=== PATIENT | female | born 1965 | race Two or more races ===

== ENCOUNTER 2017-09-12 10:21 | Emergency (ER) | payer OTHER ==
--- NOTE | 2017-09-12 10:44 | EDPHY ---
H & P Time Seen by Provider: 09/12/17 10:41 HPI/ROS: Chief complaint. Wrist injury HPI. Patient is a 52-year-old female here just after a fall sustaining injury to her left wrist. She was at work. Trip and fall landing on outstretched left arm. No other injuries. No history of previous wrist fracture injury to the wrist. Patient is right handed. Denies focal weakness or paresthesias. Increased pain with range of motion ROS Constitutional. no fever/chills, no weakness Eyes. no problems with vision ENT. no sore throat, no nasal drainage Cardiovascular. no chest pain Respiratory. no shortness of breath, no cough Abdominal. no abdominal pain, no nausea/vomiting, no diarrhea . no problems urinating MS. Left wrist injury Skin. no rash Lymph. no swollen glands Neuro. no headache, no dizziness, no difficulty walking or with speech Past Medical/Surgical History: Orally controlled diabetes Social History: , nonsmoker, no alcohol Smoking Status: Never smoked Physical Exam: General Appearance: Alert well-developed female moderate distress vital signs are stable Eyes: Pupils equal and round no pallor or injection. ENT, Mouth: Mucous membranes are moist. Respiratory: There are no retractions, lungs are clear to auscultation. Cardiovascular: Regular rate and rhythm. Gastrointestinal: Abdomen is soft and nontender, no masses, bowel sounds normal. Neurological: Awake and alert, sensory and motor exams grossly normal. Skin: Warm and dry, no rashes. Musculoskeletal: Neck is supple nontender. Extremities obvious deformity to the left wrist. No elbow or shoulder pain. Distal motor vascular sensitivity is intact. The fracture is closed Psychiatric: Patient is oriented X 3, there is no agitation. Constitutional: Initial Vital Signs Temperature (C) 36.9 C 09/12/17 10:30 Heart Rate 79 09/12/17 10:30 Respiratory Rate 18 09/12/17 10:30 Blood Pressure 164/102 H 09/12/17 10:30 O2 Sat (%) 96 09/12/17 10:30 O2 Delivery Mode Room Air Allergies/Adverse Reactions: No Known Allergies Allergy (Unverified 09/12/17 10:29) Home Medications: Medication Instructions Recorded Hydrocodone/APAP 5/325 [[place] 1 each PO Q4-6PRN PRN #14 tab 09/12/17 5/325 (*)] Metformin HCl 09/12/17 Medical Decision Making - Diagnostics Imaging Results: Imaging Impressions Wrist X-Ray 09/12/17 10:28 Impression: Comminuted intra-articular displaced and angulated fracture of the distal left radial metaphysis. There is also a displaced fracture of the ulnar styloid. Wrist X-Ray 09/12/17 11:20 Impression: Comminuted intra-articular distal left radius fracture with reduced dorsal angulation, but persistent posterior displacement. Displaced ulnar styloid fracture. X-ray interpreted by me shows comminuted intra-articular displaced and angulated fracture of the distal left radius. Also displaced fracture of the ulnar styloid Post reduction x-ray is improved but there is persistent posterior displacement. There is reduced dorsal angulation Procedures: Hematoma block is performed. Finger traps or used for traction. The fracture is reduced by me. Further attempt at reduction. Sugar-tong splint is placed. Post splint application shows good anatomic position and distal motor vascular sensitivity to be intact ED Course/Re-evaluation: Patient remained stable. The patient and I discussed imaging study results, treatment plan, criteria for return and importance of follow-up and further evaluation. She expresses understanding and agreement japanese interpreter is Salud Differential Diagnosis: I considered fracture, dislocation, sprain Departure - Departure Disposition: Home, Routine, Self-Care Clinical Impression: Radius and ulna distal fracture Qualifiers: Encounter type: initial encounter Fracture type: closed Laterality: left Qualified Code(s): S52.502A - Unspecified fracture of the lower end of left radius, initial encounter for closed fracture; S52.602A - Unspecified fracture of lower end of left ulna, initial encounter for closed fracture; S52.602A - Unspecified fracture of lower end of left ulna, initial encounter for closed fracture Condition: Good Instructions: Wrist Fracture in Adults (ED) Additional Instructions: Ice and elevation next 24-48 hours. Splint and sling until see orthopedist. Call orthopedist today for follow-up evaluation. You will likely need surgery on this fracture. Tylenol or hydrocodone as needed for pain. Return for worsening pain. Referrals: [facility] [Other] - As per Instructions Wilian Thornton MD [Medical Doctor] - As per Instructions Prescriptions: Hydrocodone/APAP 5/325 [[place] 5/325 (*)] 1 each PO Q4-6PRN PRN #14 tab PRN Reason: Pain, Moderate
[2017-09-12 13:05] VITALS: BP 143/92
== END 2017-09-12 12:57 | disposition home or self-care (01) ==
LOC: CED 10:21
DX: S52.502A Unspecified fracture of the lower end of left radius, initial encounter for closed fracture (principal); S52.602A Unspecified fracture of lower end of left ulna, initial encounter for closed fracture; E11.9 Type 2 diabetes mellitus without complications; Z79.84 Long term (current) use of oral hypoglycemic drugs; W01.0XXA Fall on same level from slipping, tripping and stumbling without subsequent striking against object, initial encounter; Y92.69 Other specified industrial and construction area as the place of occurrence of the external cause; Y99.0 Civilian activity done for income or pay; Y93.89 Activity, other specified
CPT/HCPCS: 73100-PO; 73110-PO; A4565

== ENCOUNTER 2017-09-17 19:21 | Emergency (ER) | payer OTHER ==
--- NOTE | 2017-09-17 19:38 | EDPHY ---
H & P Time Seen by Provider: 09/17/17 19:31 HPI/ROS: CHIEF COMPLAINT: Wrist fracture HISTORY OF PRESENT ILLNESS: The patient is a 52-year-old female who comes to the emergency department because of a previous wrist fracture. She was seen here on the . She had a Colles fracture of her left wrist. Who was reduced and splinted successfully. She was given a short prescription of pain medications and told to follow up with Dr. Thornton from Orthopedics. She is here with her son and they state that they did follow up with Dr. Thornton's office but their office was asking questions about insurance and records and the patient did not have either. I am not sure if they were told they could not be seen or if they just left. The patient returned here today for more help and also because she is having some discoloration of her fingers and swelling. REVIEW OF SYSTEMS: Constitutional: denies: chills, fever, recent illness, recent injury EENTM: denies: blurred vision, double vision, nose congestion Respiratory: denies: cough, shortness of breath Cardiac: denies: chest pain, irregular heart rate, lightheadedness, palpitations Gastrointestinal/Abdominal: denies: abdominal pain, diarrhea, nausea, vomiting, blood streaked stools Genitourinary: denies: dysuria, frequency, hematuria, pain Musculoskeletal: See HPI Skin: denies: lesions, rash, jaundice, bruising Neurological: denies: headache, numbness, paresthesia, tingling, dizziness, weakness Hematologic/Lymphatic: denies: blood clots, easy bleeding, easy bruising Immunologic/allergic: denies: HIV/AIDS, transplant EXAM: GENERAL: Well-appearing, well-nourished and in no acute distress. HEAD: Atraumatic, normocephalic. EYES: Pupils equal round and reactive to light, extraocular movements intact, sclera anicteric, conjunctiva are normal. ENT: TMs normal, nares patent, oropharynx clear without exudates. Moist mucous membranes. NECK: Normal range of motion, supple without lymphadenopathy or JVD. LUNGS: Breath sounds clear to auscultation bilaterally and equal. No wheezes rales or rhonchi. HEART: Regular rate and rhythm without murmurs, rubs or gallops. ABDOMEN: Soft, nontender, normoactive bowel sounds. No guarding, no rebound. No masses appreciated. BACK: No CVA tenderness, no spinal tenderness, step-offs or deformities EXTREMITIES: Normal swelling and bruising to wrist and fingers. Normal range of motion NEUROLOGICAL: Cranial nerves II through XII grossly intact. Normal speech, normal gait. 5/5 strength, normal movement in all extremities, normal sensation PSYCH: Normal mood, normal affect. SKIN: Warm, dry, normal turgor, no visible rashes or lesions. Source: Patient Exam Limitations: Language barrier (Pattern Illustrator used) - Medical/Surgical History Hx Asthma: No Hx Chronic Respiratory Disease: No Hx Diabetes: Yes Hx Cardiac Disease: No Hx Renal Disease: No Hx Cirrhosis: No Hx Alcoholism: No Hx HIV/AIDS: No Hx Splenectomy or Spleen Trauma: No Other PMH: DM - Family History Significant Family History: No pertinent family hx - Social History Smoking Status: Never smoked Alcohol Use: Sober Drug Use: None Constitutional: Initial Vital Signs Temperature (C) 37 C 09/17/17 20:27 Heart Rate 82 09/17/17 20:27 Respiratory Rate 20 09/17/17 20:27 Blood Pressure 133/95 H 09/17/17 20:27 O2 Sat (%) 94 09/17/17 20:27 O2 Delivery Mode Room Air Allergies/Adverse Reactions: No Known Allergies Allergy (Unverified 09/12/17 10:29) Home Medications: Medication Instructions Recorded Hydrocodone/APAP 5/325 [[place] 1 each PO Q4-6PRN PRN #14 tab 09/12/17 5/325 (*)] Metformin HCl 09/12/17 Medical Decision Making ED Course/Re-evaluation: The patient's wrist is still splinted. She has bruising and swelling as would be expected. No sign of ischemia or infection. We will contact case management and translation services to help facilitate follow-up. Differential Diagnosis: Partial list of the Differential diagnosis considered include but were not limited to; wrist fracture, contusion, swelling and although unlikely based on the history and physical exam, I also considered ischemia, nerve injury, infection. I discussed these differential diagnoses and the plan with the patient as well as the usual and expected course. The patient understands that the diagnosis is provisional and that in medicine we are not always correct and that further workup is often warranted. Usual and customary warnings were given. All of the patient's questions were answered. The patient was instructed to return to the emergency department should the symptoms at all worsen or return, otherwise to followup with the physician as we discussed. Departure - Departure Disposition: Home, Routine, Self-Care Clinical Impression: Wrist fracture, left Qualifiers: Encounter type: subsequent encounter Fracture type: closed Fracture healing: with routine healing Qualified Code(s): S62.102D - Fracture of unspecified carpal bone, left wrist, subsequent encounter for fracture with routine healing Condition: Fair Instructions: Wrist Fracture in Adults (ED) Referrals: [facility] [Other] - As per Instructions Stewart Bartlett MD [Medical Doctor] - 1-2 days without fail
[2017-09-17 20:31] VITALS: BP 128/88
== END 2017-09-17 20:31 | disposition home or self-care (01) ==
LOC: CED 19:21
DX: S62.102D Fracture of unspecified carpal bone, left wrist, subsequent encounter for fracture with routine healing (principal); E11.9 Type 2 diabetes mellitus without complications; Z79.84 Long term (current) use of oral hypoglycemic drugs; X58.XXXD Exposure to other specified factors, subsequent encounter